=== PATIENT | male | born 1950 | race Hispanic/Latino ===

== ENCOUNTER 2021-08-19 05:44 | Day surgery (SDC) | payer MEDICARE ==
[2021-08-13 10:06] LABS: Hematocrit 44.3 % (35.5-45.6); Hemoglobin 14.3 gm/dl (11.8-15.2); Mean Corpuscular HGB Conc 32 % (32-34); Mean Corpuscular Volume 84 fl (84-94); Platelet Count 120 K/mm3 (140-440); Red Blood Count 5.26 M/mm3 (3.65-5.03); Red Cell Distribution Width 15.5 % (13.2-15.2)
[2021-08-13 10:18] LABS: BUN/Creatinine Ratio 30; Blood Urea Nitrogen 21 mg/dL (9-20); Calcium 9.9 mg/dL (8.4-10.2); Hemolysis Index 4
--- NOTE | 2021-08-13 10:42 | Anesthesia Consultation ---
Anesthesia Consult and Med Hx Date of service: 08/19/21 - Airway Anesthetic Teeth Evaluation: Good ROM Head & Neck: Adequate (mild restricted extension) Mental/Hyoid Distance: Adequate Mallampati Class: Class II Intubation Access Assessment: Probably Good - Pulmonary Exam CTA: Yes - Cardiac Exam Cardiac Exam: RRR - Pre-Operative Health Status ASA Pre-Surgery Classification: ASA3 Proposed Anesthetic Plan: General, Epidural Nerve Block: adductor canal - Pre-Anesthesia Comment Pre-Anesthesia Comments: Discussed risks/benefits of GA vs neuraxial. Patient is currently undecided. - Pulmonary Hx Smoking: No Hx Respiratory Symptoms: No Hx Sleep Apnea: Yes (+ CPAP) - Cardiovascular System Hx Hypertension: Yes Hx Coronary Artery Disease: Yes (s/p stent x1 2012) Hx Heart Attack/AMI: No Hx Cardia Arrhythmia: No - Central Nervous System CVA: No - Endocrine Hx Renal Disease: No Hx Liver Disease: No Hx Non-Insulin Dependent Diabetes: Yes (A1c 5.4 on outpatient labs 05/2021) Hx Thyroid Disease: No - Other Systems Hx Obesity: Yes (BMI 34) - Additional Comments Anesthesia Medical History Comments: No hx anesthetic complications. Patient recently saw statistical technician for preop eval; records requested. States that he has discussed same day discharge vs overnight admission with surgeon.
[2021-08-19] MEDS ORDERED: MELOXICAM 7.5 MG TAB PO SCH (06:00)
[2021-08-19] MEDS ORDERED: ACETAMINOPHEN 325 MG TAB PO SCH (06:00)
[2021-08-19] MEDS ORDERED: PREGABALIN 25 MG CAP PO SCH (06:00)
[2021-08-19] MEDS ORDERED: MIDAZOLAM 2 MG/2 ML INJ IV NR (06:00)
[2021-08-19] MEDS ORDERED: LACTATED RINGERS 1,000 ML IV SCH (06:00)
[2021-08-19] MEDS ORDERED: fentaNYL 100 MCG/2 ML INJ IV PRN (06:00)
[2021-08-19] MEDS ORDERED: BACTERIOSTATIC SODIUM CHLORIDE 0.9% 30 ML VIAL INFILTRATI ONE (06:27)
[2021-08-19] MEDS ORDERED: BUPIVACAINE/PF (0.25%) 2.5 MG/ML 30 ML VIAL INFILTRATI ONE (07:32)
[2021-08-19] MEDS ORDERED: dexAMETHasone 4 MG/ML VIAL ONE (07:33)
--- NOTE | 2021-08-19 07:37 | Anesthesia Day of Surgery ---
Anesthesia Day of Surgery - Day of Surgery Patient Examined: Yes Patient H&P Reviewed: Yes Patient is NPO: Yes
[2021-08-19] MEDS ORDERED: ceFAZolin/Water 2 GM/20 ML 2 GM/20 ML SYRINGE IV ONE (07:38)
[2021-08-19] MEDS ORDERED: LIDOCAINE MPF (2%) 20 MG/1 ML VIAL 5 ML ONE (07:54)
[2021-08-19] MEDS ORDERED: fentaNYL 100 MCG/2 ML INJ ONE ×2 (07:55→09:31)
[2021-08-19] MEDS ORDERED: propofoL 200 MG/20 ML VIAL IV ONE (07:55)
[2021-08-19] MEDS ORDERED: ceFAZolin/STERILE WATER 2 GM/20 ML SYRINGE IV NR (08:00)
[2021-08-19] MEDS ORDERED: TRANEXAMIC ACID 1,000 MG/10 ML ONE ×2 (08:03→08:20)
[2021-08-19] MEDS ORDERED: BUPIVACAINE/PF (0.5%) 5 MG/1 ML 30 ML VIAL INFILTRATI ONE ×2 (08:03→11:06)
[2021-08-19] MEDS ORDERED: methylPREDNISolone ACETATE 40 MG/1 ML INJ ONE (08:04)
[2021-08-19] MEDS ORDERED: MORPHINE 10 MG/1 ML INJ ONE (08:04)
[2021-08-19] MEDS ORDERED: SODIUM CHLORIDE 0.9% 500 ML 500 ML ONE (08:20)
[2021-08-19] MEDS ORDERED: PHENYLEPHRINE/NS 1,000 MCG/10 ML SYRINGE (OR USE) IV ONE (08:25)
[2021-08-19] MEDS ORDERED: GLYCOPYRROLATE 0.4 MG/2 ML INJ ONE (08:25)
[2021-08-19] MEDS ORDERED: ONDANSETRON 4 MG/2 ML INJ IV PRN (08:30)
[2021-08-19] MEDS ORDERED: HYDROmorphone 0.5 MG/0.5 ML INJ IV PRN ×2 (08:30)
[2021-08-19] MEDS ORDERED: LACTATED RINGERS 1,000 ML ONE ×2 (09:55→11:12)
[2021-08-19] MEDS ORDERED: SODIUM CHLORIDE 0.9% 100 ML ONE (09:56)
[2021-08-19] MEDS ORDERED: ONDANSETRON 4 MG/2 ML INJ ONE (10:12)
[2021-08-19] MEDS ORDERED: SODIUM CHLORIDE 0.9% 1000 ML 1,000 ML ONE (10:34)
[2021-08-19] MEDS ORDERED: ePHEDrine SULFATE 50 MG/1 ML INJ ONE (10:53)
[2021-08-19] MEDS ORDERED: MORPHINE 10 MG/1 ML INJ IV ONE (11:06)
[2021-08-19] MEDS ORDERED: methylPREDNISolone ACETATE 40 MG/1 ML INJ IM ONE (11:07)
[2021-08-19] MEDS ORDERED: SODIUM CHLORIDE 0.9% 50 ML VIAL INFILTRATI ONE (11:07)
--- NOTE | 2021-08-19 11:37 | Post Operative Note ---
Date of procedure: 08/19/21 Pre-op diagnosis: left knee osteoarthritis Post-op diagnosis: same Findings: left knee osteoarthritis - severe Procedure: Left total knee replacement Anesthesia: GETA Surgeon: MARCI ESTEVEZ Work Measurement Engineer: DARIEL MEJIA Estimated blood loss: 50-100ml Pathology: list (left knee bone fragments) Specimen disposition: to lab Condition: stable Disposition: PACU
--- NOTE | 2021-08-19 11:57 | Operative Report ---
Operative Report Operative Report: Patient Name: Don Marie Jr Date of : 1950 Date of Surgery: 08/19/21 Pre-Operative Diagnosis: Left knee osteoarthritis Post-Operative Diagnosis: Left knee osteoarthritis Procedure: Left total knee replacement Surgeon: Mulugeta Linares DO Assistants: Tara Arita PA-C EBL: 50cc Complications: None Anesthesia: GETA, plus regional nerve block for post-operative pain control Implants: Medacta GMK Sphere size 6 femur, size 5 tibia, 12 mm CS polyethylene insert, size 3 patella Tourniquet Time: 112 minutes Indications: This is a 70-year-old male who presented with worsening left knee pain over the last 2-3 years. Pain is worse with weight bearing. Patient had difficulty ambulating, using stairs because of the pain. Patient had tried nonoperative management including physical therapy/home exercises, joint injections, anti-inflammatory medications, activity modifications, ambulating with assistive devices without any lasting pain relief. Patient elected to undergo left total knee replacement. Patient was met in the preoperative holding area where the risk, benefits, alternatives to surgery were explained to the patient in detail. Risks include but are not limited to infection, bleeding, neurovascular injury, soft tissue injury, infection, need for further surgery, need for revision surgery, fracture, dislocation, pain, stiffness, loss of limb, loss of life. Informed consent was obtained after all questions were thoroughly answered. Procedure: Patient was placed supine on the operating room table and all bony prominences were well-padded. The left lower extremity was prepped and draped in the usual sterile fashion. A timeout was performed by all members of the operating room team. An Esmarch bandage was used to wrap the left lower extremity and the tourniquet was inflated to 250 mmHg. A midline incision was made over the left knee. Sharp dissection was used to go through the skin and the subcutaneous fat. Medial and lateral fasciocutaneous flaps were then elevated. Using electrocautery a medial parapatellar arthrotomy was then performed. Upon inspection of the knee joint there was severe osteoarthritis in the medial, lateral and patellofemoral compartments. An anteromedial release was performed on the proximal tibia anterior to the midsagittal plane. The ACL and the PCL as well as the meniscal remnants were then removed. An opening reamer was then used to open up the distal femoral canal. An intramedullary danay was placed approximately 10 cm up the femoral canal. The distal cutting jig and block were then secured to the distal femur. Using an oscillating saw the distal femoral resection was then performed. Using calipers we measured the thickness of the cut distal medial and lateral femoral condyles. Taking into account cartilage loss and the saw kerf we made sure that the amount of resection equaled the thickness of our implant. The distal cutting block was removed. A femoral sizer was used to measure the size of the femoral implant. Once we had the appropriate size we secured the 4-in-1 cutting block to the distal femur using 2 bone screws. We then made our medial and lateral posterior femoral condylar cuts. Again we used a caliper to measure the thickness of our cuts while taking into account cartilage loss and saw kerf, thickness equaled that of the implant. Next, using the oscillating saw to make the anterior femoral cut as well as the anterior and posterior chamfer cuts. Next we turned our attention to the proximal tibia. We then secured the extra medullary tibial cutting jig to the leg. We then matched the big sandy slope of the proximal tibia with the guide. We also made sure that the tibial cutting guide was parallel to the articular surface taking into account any cartilage wear and bone loss. Using the 8 mm stylus at the base of the tibial spines on the medial and lateral side we then adjusted the tibial guide to the proper resection depth. We secured the proximal tibial cutting jig to the proximal tibial bone using 3 pins. An oscillating saw was then used to make our proximal tibial resection. Next using a laminar nursing clerk the knee joint was opened up in 90 degrees of flexion. Using a 0.5 inch curved osteotome the posterior osteophytes were removed from both the posterior medial distal femur as well as posterior lateral distal femur. The meniscal remnants were then removed. Next the tibia was anteriorly subluxed and a size 5 tibial guide was then placed in the appropriate amount of rotation parallel to the rotational axis of the tibia of the big sandy knee. Tibial guide was secured to the proximal tibia using 2 pins. The tibia was then drilled and punched in the proper rotation. Trial components were then placed on the tibia as well as the femur. The knee was taken through the full range of motion and found to be stable. The knee was able to be flexed to 135 degrees and extension to 0 degrees. There is no varus or valgus laxity with the knee in full extension. The knee was flexed to 90 degrees and again varus and valgus stress was applied. There was no gapping of the medial side with the knee 90 degrees of flexion, the lateral side had approximately 2 mm of gapping which was consistent with a kinematics of the big sandy knee joint. The patella was also tracking well within the trochlear groove with no lateral tilt or subluxation. The patella was then everted and cut down to 14 mm using the patellar cutting guide. 3 holes were drilled into the patella and the trial button was placed. Again the knee was taken through the full range of motion with good patella tracking. At this point we were satisfied with the overall range of motion the stability of the patella tracking as well as the knee. All trials were then removed. The real components were opened. The knee was copiously irrigated with antibiotic saline and then dried. A local anesthetic cocktail was then injected into the posterior capsule as well as the surrounding deep tissues of the knee joint. 2 bags of cement were mixed. Once the cement was in a doughy state the real components were cemented into place starting with the tibia followed by the femur and then the patella. All excess cement was then removed using curettes from around the implants. Once the cement had completely hardened the knee was irrigated again with diluted Betadine mixed with normal saline. The knee was then copiously irrigated with normal saline using pulsatile lavage. The tourniquet was let down. There was no active bleeding. Electrocautery was used throughout the case to maintain meticulous hemostasis. The arthrotomy was then closed in flexion in a watertight fashion using #1 Ethibond suture in an interrupted fashion. The arthrotomy was then reinforced with a #1 stratafix PDS suture. The deep fascial layer was closed with 0 Vicryl. The subcutaneous layers were closed with 2-0 Vicryl and the subcuticular layer was closed with 3-0 Monocryl. The wound was then covered with an occlusive dressing. The operative lower extremity was wrapped in an Hair wrap from the foot all the way up to the proximal thigh. The sponge and needle count were correct in the case. The patient was then awakened by the anesthesia team and taken to the recovery room in stable condition. The patient's total knee arthroplasty was performed using a calipered kinematically aligned technique.
--- NOTE | 2021-08-19 11:59 | Discharge Summary ---
Short Stay Discharge Plan Activity: advance as tolerated, no driving until cleared by PCP Weight Bearing Status: Weight Bear as Tolerated Diet: regular Wound: keep clean and dry, per your surgeon's advice Special Instructions: smoking cessation, no heavy lifting, physical therapy Durable Medical Equipment Needed Upon Discharge: Walker-Rolling Additional Instructions: Refer to printed discharge instructions given to patient by surgeon in recovery room Follow up with: VERN MOFFETT [Other] - 7 Days MARCI ESTEVEZ DO [Staff Physician] - 14 Days
--- NOTE | 2021-08-19 13:22 | XRay Report ---
LEFT KNEE 2 VIEWS INDICATION: s/p left total knee replacement. COMPARISON: None. IMPRESSION: Recent left knee arthroplasty changes are evident. The hardware appears well applied wi th anatomic alignment at the joint space. Signer Name: Abdoulaye Howell Jr, MD Signed: 08/19/2021 1:18 PM Workstation Name: [id number]
[2021-08-19 14:42] VITALS: BP 110/74
--- NOTE | 2021-08-19 15:40 | Post Anesthesia Evaluation ---
- Post Anesthesia Evaluation Patient Participated: Yes Airway Patent: Yes Stable Respiratory Function: Yes Nausea/Vomiting: No Temp > 96.8F: Yes Pain Manageable: Yes Adequeate Hydration: Yes Anesthesia Complications: No Block Receding Appropriately: Yes Patient on Ventilator: No
== END 2021-08-19 14:30 | disposition home or self-care (01) ==
LOC: OR 05:44 → EDSTATUS 08:00 → OR 14:30
PROVIDERS: ATTEND Orthopaedic Surgery
DX: M17.12 Unilateral primary osteoarthritis, left knee (principal); I25.10 Atherosclerotic heart disease of native coronary artery without angina pectoris; E78.00 Pure hypercholesterolemia, unspecified; G47.33 Obstructive sleep apnea (adult) (pediatric); I10 Essential (primary) hypertension; K21.9 Gastro-esophageal reflux disease without esophagitis; E66.9 Obesity, unspecified; E11.9 Type 2 diabetes mellitus without complications; Z20.822 Contact with and (suspected) exposure to COVID-19; Z79.899 Other long term (current) drug therapy; Z79.82 Long term (current) use of aspirin; Z98.890 Other specified postprocedural states; Z68.34 Body mass index [BMI] 34.0-34.9, adult
CPT/HCPCS: 27447; 36415; 64450; 73560; 80048; 82962; 85027; 88305; 97161; C1713; C1776; J0690; J0696; J1030; J1100; J1815; J2250; J2270; J2370; J2405; J2704; J3010; J3490; J7030; J7040; J7120; U0003